=== PATIENT | female | born 1945 | race Caucasian/White ===

== ENCOUNTER → 2018-02-27 10:40 | Outpatient (CLI) | payer MEDICARE, SELFPAY ==
--- NOTE | 2018-02-27 10:49 | MRI_ITS ---
STUDY: MRI LUMBAR SPINE WITHOUT CONTRAST REASON FOR EXAM: Female, 72 years old. lumbar radiculopathy, BACK PAIN. TECHNIQUE: Standardized fat and water weighted pulse sequences were obtained in the sagittal and axial planes. COMPARISON: None FINDINGS: T12-L1: There is moderate disc space narrowing and anterior spondylosis. There is no significant disc herniation, spinal canal or foramina stenosis.. Normal lumbar lordosis. There is levoscoliosis. Normal conus medullaris that terminates at the L1 L1-2: There is moderate disc space narrowing and endplate spondylosis. There is a minimal disc bulge without significant central canal or foraminal stenosis. L2-3: There is severe disc space narrowing and endplate spondylosis. There is minimal retrolisthesis. There is a disc osteophyte complex asymmetric to the right with moderate right foraminal stenosis. There is facet hypertrophy with mild central canal and mild left foraminal stenosis. L3-4: There is severe disc space narrowing and endplate spondylosis. There is a disc osteophyte complex asymmetric to the right with moderate right foraminal stenosis. There is facet arthropathy with mild central canal and mild left foraminal stenosis. L4-5: There is moderate disc space narrowing and endplate spondylosis. There is a moderate disc osteophyte complex asymmetric to the left with moderate left foraminal stenosis. There is facet arthropathy with mild central canal and mild right foraminal stenosis. L5-S1: There is severe disc space narrowing and endplate spondylosis. There is a mild disc osteophyte complex asymmetric to the left with moderate left foraminal stenosis. There is facet adenopathy without significant central canal or right foraminal stenosis. Normal visualized sacral ala. Normal visualized paraspinous soft tissue structures. MRI/Spine Lumbar (Routine) IMPRESSION: Scoliosis and multilevel degenerative changes. L2/L3: Moderate right foraminal stenosis. L3/L4: Moderate right foraminal stenosis. L4/L5: Moderate left foraminal stenosis. L5/S1: Moderate left foraminal stenosis. Electronically Signed: Zaki Lakhani MD at 14:58 EDT Tel , Service support ,
== END ==
PROVIDERS: Family Provider Family Medicine; PCP Family Medicine; Visit Provider Anesthesiology
DX: M54.16 Radiculopathy, lumbar region (principal)
CPT/HCPCS: 72148

== ENCOUNTER → 2018-04-22 10:36 | Outpatient (CLI) | payer MEDICARE, SELFPAY ==
--- NOTE | 2018-04-22 | BRBX_PTH ---
PATIENT: TIMBO POOLE LOC: [facility] U#:[id number] AGE/SX: 79/F ROOM: RE04/22/[address]: Dr. Carrington Loya MD : 1945 BED: DIS: SPEC #: [id number] RECD: 04/22/18 13:25 STATUS: DELBERT OMAR #: [id number] MUNIR: 04/22/18 00:[address]: Carrington Loya DEPT: SURGICAL PATHOLOGY RECD BY: Shai Mckeon ENTERED: 04/22/18 13:28 SP TYPE: BREAST BX OT DR: Dr. Dipesh Ellington MD Tissues: Left breast, NOS Procedures: Surgery Specimen Level IV HEADER OPERATION: Left breast stereotactic needle core biopsy PRE-OP DIAGNOSIS: Left breast nodular density TISSUE SUBMITTED: 9 mm nodular density 8 o?clock middle depth ISCHEMIC TIME: 1 minute FIXATION TIME: 8 hours MICROSCOPIC DIAGNOSIS Left breast, 9 mm nodular density, 8 o?clock middle depth, stereotactic needle core biopsy: Fatty breast tissue with focal fibrocystic changes. A minute fibrous nodule (0.2 cm in greatest dimension). Negative for atypia or malignancy. RAMIN:ramakrishna 04/23/18 COMMENT Correlation with clinical, radiologic findings and appropriate follow up are necessary. MICROSCOPIC DESCRIPTION Slides are reviewed. GROSS DESCRIPTION Received is one container labeled with the patient's name and not further designated. The specimen consists of multiple elongated fragments of franklin-yellow fibroadipose tissue that in aggregate measure 7.5 x 3 x 0.3 cm. The entire specimen is submitted in three cassettes. / RAMIN:ramakrishna 04/22/18 TC:5 CPT: 72103
--- NOTE | 2018-04-22 10:30 | BI_ITS ---
STEREOTACTIC CORE BIOPSY REASON FOR EXAM: Female, 72 years old. Suspicious nodule in the inferior medial aspect of the left breast. PERTINENT HISTORY: Non-contributory. COMPARISON: None. TECHNIQUE: (All elements of maximal sterile barrier technique followed, including US elements as applicable) Upon arrival to the breast imaging department the patient's identification was confirmed and the RIGHT breast was marked according to time-out protocol. Stereotactic core biopsy and clip placement, to include potential risks and complications, was explained in full to the patient. Written and verbal consent were obtained prior to initiation of the procedure. The patient was placed in prone position on the stereotactic biopsy table with the RIGHT breast in cc compression. Manager Behavioral and stereotactic views were then obtained for targeting. The RIGHT breast was prepped and draped in standard sterile fashion and local anesthesia was obtained with 1% buffered lidocaine. A small dermatotomy was then made to introduce the core biopsy needle. Multiple core samples were obtained with a 8 gauge vacuum assisted core biopsy needle. A titanium clip was then deployed into the biopsy cavity. Upon completion of the procedure hemostasis was obtained and sterile dressing was applied. The patient tolerated the entire procedure without immediate complication and was discharged from the breast imaging department in good condition. BI/Stereo Breast Biopsy 1st Lesio IMPRESSION: Stereotactic core biopsy for suspicious nodule in the RIGHT breast without complication. Electronically Signed: Ramsey Herrera MD at 14:55 EDT Tel [phone], Service support ,
== END ==
PROVIDERS: Family Provider Family Medicine; PCP Family Medicine
DX: R92.8 Other abnormal and inconclusive findings on diagnostic imaging of breast (principal); N63.20 Unspecified lump in the left breast, unspecified quadrant
CPT/HCPCS: 19081; 88305; A4648

== ENCOUNTER → 2018-04-29 13:16 | Outpatient (CLI) | payer MEDICARE, SELFPAY ==
[2018-04-29 14:36] LABS: Amphetamine Urine VISTA NEGATIVE (<1000 ng/mL); Barbiturate Urine VISTA NEGATIVE (< 200 ng/mL); Benzodiazepine Urine VISTA NEGATIVE (< 200 ng/mL); Cocaine Urine VISTA NEGATIVE (< 300 ng/mL); Ecstacy Urine VISTA NEGATIVE (< 500 ng/mL); Methadone Urine VISTA NEGATIVE (< 300 ng/mL); PCP Urine VISTA NEGATIVE (< 25 ng/mL); THC Urine VISTA NEGATIVE (< 50 ng/mL); Vista UDS pH Range 8
== END ==
PROVIDERS: Family Provider Family Medicine; PCP Family Medicine; Visit Provider Anesthesiology Pain Medicine
DX: F11.20 Opioid dependence, uncomplicated (principal)
CPT/HCPCS: 80307

== ENCOUNTER → 2019-10-06 12:53 | Outpatient (CLI) | payer MEDICARE, SELFPAY ==
--- NOTE | 2019-10-06 13:00 | RAD_ITS ---
STUDY: SWALLOWING STUDY REASON FOR EXAM: Female, 73 years old. DYSPHAGIA, 870 IMAGES, 12.06 MGY, 81 SEC FLUORO TECHNIQUE: The examination was performed with Speech Pathology in attendance. Under fluoroscopic observation, the patient ingested thin barium, thick barium, barium pudding, and barium coated cracker. FLUOROSCOPY TIME: 1:21 minutes/seconds RADIOLOGIST INVOLVEMENT: Radiologist was present and providing direct supervision. COMPARISON: None. FINDINGS: The following was observed during swallowing of the various mixtures of barium: Thin Barium: There was no evidence of aspiration or laryngeal penetration. Barium Pudding: There was no evidence of aspiration or laryngeal penetration. Barium Coated Cracker: There was no evidence of aspiration or laryngeal penetration. RAD/Swallowing Function w/Video IMPRESSION: Normal tailored barium swallow study. No evidence of increased risk for aspiration. The swallow study findings were discussed with the patient by the speech pathologist at the conclusion of the examination. Please see speech pathology report for more information and recommendations. Electronically Signed: Ramsey Herrera, at 13:55 EST , Service support ,
--- NOTE | 2019-10-06 13:00 | SP.MBSS_ITS ---
PRIMARY / SECONDARY DIAGNOSIS: dysphagia (R13.10) REFERRING PHYSICIAN: Dr. Dipesh Ellington MD CURRENT DIET: regular soft textures, thin liquids DENTITION: natural dentition, multiple missing teeth MENTAL STATUS: sufficient for participation RESPIRATORY STATUS: O2 at 4L/min via nasal cannula. REASON FOR REFERRAL: The Patient is a 73 year old female referred for a modified barium swallow (MBS) study to objectively assess the Patients oropharyngeal swallow function under fluoroscopy secondary to reported occasional post prandial coughing with thin liquids. MEDICAL HISTORY: Parkinson?s disease, dementia, gastroesophageal reflux disease, anemia, hyponatremia, prepyloric channel ulcer, hypertension, status post tonsillectomy. PREVIOUS MODIFIED BARIUM SWALLOW STUDY: None ASSESSMENT PARAMETERS: The Patient participated in a Modified Barium Swallow (MBS) study on 10/06/2019. Dr. Herrera was the radiologist present for this evaluation. This study was recorded in the lateral view and images were sent to PACs for storage. Scoring was completed through each trial using the 8-point Penetration-Aspiration Scale (PAS) and summarized via the Videofluoroscopic Dysphagia Scale (VDS) and the Bolus Residue Scale (BRS), with severity scoring through the Dysphagia Severity Rating Scale (DSRS) and the Swallowing Performance Scale (SPS), and recommended diet textures through the International Dysphagia Diet Standardisation Initiative (IDDSI) RESULTS OF THE EVALUATION: The Patient presents with mild to moderate oropharyngeal dysphagia (DSRS: 3; SPS: 4) OBJECTIVE ASSESSMENT OF SWALLOW FUNCTION (QUANTITATIVE ? PER TRIAL): PENETRATION / ASPIRATION SCALE (ROY): 1 = does not enter airway 2 = enters airway/above vocal folds/ejected 3 = enters airway/above vocal folds/not ejected 4 = enters airway/contacts vocal folds/ejected 5 = enters airway/contacts vocal folds/not ejected 6 = enters airway/below vocal folds/ejected 7 = enters airway/below vocal folds/not ejected despite effort 8 = enters airway/below vocal folds/no effort PENETRATION / ASPIRATION SCALE (SCORE): Thin liquid - 5 mL tsp.: 1 Thin liquids via cup (single sip): 2* Thin liquids via cup (single sip): 1 Thin liquids via cup (single sip): 1 Pudding via spoon: 1 Regular textured cookie: 1 Thin liquids via straw (single sip): 1 Thin liquids via straw (sequential swallows): 1 * denotes limited view due to Patient movement OBJECTIVE ASSESSMENT OF SWALLOW FUNCTION (QUANTITATIVE ? AGGREGATE): VIDEOFLOROSCOPIC DYSPHAGIA SCALE (VDS): LIP CLOSURE: 0 (of 4) Intact BOLUS FORMATION: 0 (of 6) Intact MASTICATION: 4 (of 8) Inadequate APRAXIA: 0 (of 4.5) None TONGUE TO PALATE CONTACT: 0 (of 10) Intact PREMATURE BOLUS LOSS: 0 (of 4.5) None ORAL TRANSIT TIME: 0 (of 3) < 1.5s TRIGGERING OF PHARYNGEAL SWALLOW: 0 (of 4.5) Normal VALLECULAR RESIDUE: 2 (of 6) <10% LARYNGEAL ELEVATION: 0 (of 9) Normal PYRIFORM SINUS RESIDUE: 0 (of 13.5) None COATING OF PHARYNGEAL WALL: 0 (of 9) No PHARYNGEAL TRANSIT TIME: 0 (of 6) <1.0s ASPIRATION: 6 (of 12) Supraglottic penetration BOLUS RESIDUE SCALE (BRS): 2 (of 6) residue in valleculae OBJECTIVE ASSESSMENT OF SWALLOW FUNCTION (SEVERITY GRADING): DYSPHAGIA SEVERITY RATING SCALE (DSRS): 3 (mild-moderate) SWALLOWING PERFORMANCE SCALE (SPS): 4 (mild to moderate) OBJECTIVE ASSESSMENT OF SWALLOW FUNCTION (QUALITATIVE): ORAL PREPARATORY PHASE: prolonged mastication of solid textures; sufficient anterior oral containment during oral manipulation; preserved management of breathing / bolus formation ORAL TRANSITIONAL PHASE: no lingual discoordination (no tremor / undulations) sufficient oral clearance; no presence of premature posterior bolus loss PHARYNGEAL PHASE: intermittent mild pharyngeal phase delay dyssynchrony; appropriate hyolaryngeal excursion and laryngeal vestibule closure / pressure; sufficient / consistent laryngeal vestibule pressure generated to expel penetrated material; no signs of pharyngeal dysmotility; no signs of velopharyngeal impairments ESOPHAGEAL PHASE: no obvious esophageal phase abnormalities observed. RESPONSE TO STRATEGIES: all deficits managed successfully with reduction in bolus rate / volume adjustments, diet texture adjustments, use of straws, and proper positioning POST ASSESSMENT EDUCATION: Results and recommendations were discussed with the Patient and Patients family immediately following MBS completion, with the Patient and Patients family verbalizing understanding and agreement with all recommendations and education provided. I provided brief overview of signs and symptoms of aspiration, with recommendations for the Patient to further discuss symptoms with the Patients primary care provider. DIET TEXTURE RECOMMENDATIONS: Will recommend a regular ? soft textured (IDDSI: 6), thin liquid diet (IDDSI: 0) diet RECOMMENDED COMPENSATORY STRATEGIES: Distant supervision, cut tougher textures into bite sized pieces, reduced bolus volume / rate of ingestion, reduced bolus volume, reduced rate of intake, straws with all liquids, seated upright at 90 degrees during PO intake, remain upright for 30-60 minutes post meal (GERD precaution), medications one at a time with a liquid chaser. IMAGE COUNT: [id number] Milind Valdez M.A., LOKESH-ROUTER SETTER, CBIS MBSImP Certified, LSVT Certified [facility] Speech-Language Pathology Department [email or web address]
== END ==
PROVIDERS: Family Provider Family Medicine; PCP Family Medicine; Referring Provider Family Medicine; Visit Provider Family Medicine
DX: R13.10 Dysphagia, unspecified (principal); I10 Essential (primary) hypertension; E78.5 Hyperlipidemia, unspecified; F03.90 Unspecified dementia, unspecified severity, without behavioral disturbance, psychotic disturbance, mood disturbance, and anxiety; J44.9 Chronic obstructive pulmonary disease, unspecified
CPT/HCPCS: 74230; 92611

== ENCOUNTER 2019-10-30 09:29 | Outpatient (RCR) | payer MEDICARE, SELFPAY ==
[2019-10-30 10:22] VITALS: BP 156/116; PULSE 83; RESP 18; TEMP 35.8; BMI 38.0
--- NOTE | 2019-10-30 16:43 | PCM.WC.HP ---
(1) Decubitus ulcer of left buttock, stage 3 Status: Chronic Current Visit: Yes Code(s): L89.323 - Pressure ulcer of left buttock, stage 3 (2) Parkinson disease Status: Chronic Current Visit: Yes Code(s): G20 - Parkinson's disease (3) Anticoagulant long-term use Status: Chronic Current Visit: Yes Code(s): Z79.01 - intermediate teacher (current) use of anticoagulants (4) Chronic respiratory failure with hypoxia, on home O2 therapy Status: Chronic Current Visit: Yes Code(s): J96.11 - Chronic respiratory failure with hypoxia; Z99.81 - Dependence on supplemental oxygen History of Present Illness Date of Service: 10/30/19 Chief Complaint: Left Buttock Ulcer History of Wound: Ms. Mckeon is a 73-year-old who presents to the wound center due to nonhealing left buttock ulcer. Initially noticed about 3 weeks ago. They are unsure about a precipitating factor and have some theories/ suspicions about this. Patient and daughter however admit that she is largely sedentary due to her chronic comorbidities. They had tried some local wound care and offloading at home without any significant improvement. They deny chills or fever. They also deny purulent drainage but notes increased bloody fluid drainage. Past Medical History Past Medical History: Chronic Problems Decubitus ulcer of left buttock, stage 3 (Chronic) Parkinson disease (Chronic) Anticoagulant long-term use (Chronic) Chronic respiratory failure with hypoxia, on home O2 therapy (Chronic) Allergies/Adverse Reactions: Allergies cortisone [Cortisone] Allergy (Unknown, Verified 10/30/19 11:00) Swelling fentanyl Allergy (Unknown, Verified 10/30/19 11:00) Nausea Home Medications: Ambulatory Orders Medication Instructions Recorded Acetaminophen [Tylenol Arthritis] 650 mg PO 04/27/14 Amlodipine Besylate 1 gm MC 04/27/14 Aspirin [Aspirin, Baby] 81 mg PO DAILY@0800 04/27/14 Carvedilol [Coreg (Beta Johana)] 25 mg PO BID 04/27/14 Clonazepam [Klonopin] 0.5 mg PO Q8H PRN PRN 04/27/14 Docusate Sodium [Colace] 100 mg PO BID 04/27/14 Famotidine [Pepcid] 20 mg PO BID 04/27/14 Glucosamine/MSM/Chondroitin A 1 each PO 04/27/14 [Glucosamine Chondroit MSM Tab] Hydrocodone/Acetaminophen [Vicodin 1 tablet PO Q6H PRN PRN 04/27/14 Es 7.5-300 mg Tablet] Lactulose 10 gm PO BID 04/27/14 Losartan Potassium [Cozaar] 100 mg PO 04/27/14 Pravastatin [Pravachol] 20 mg PO QHS 04/27/14 Sertraline HCl [Zoloft] 50 mg PO DAILY 04/27/14 Vitamin C 500 mg PO DAILY 04/27/14 traMADol [Ultram (G)] 50 mg PO Q6H PRN PRN 04/27/14 Smoking Status: Never smoker Review of Systems Constitutional: Reports: Weakness. Denies: Chills, Fever Eyes: Denies: Pain, Redness HEENT: Denies: Difficulty Swallowing Cardiovascular: Denies: Chest Pain, Chest Pressure Respiratory: Reports: Shortness of breath upon exertion Gastrointestinal: Denies: Hematemesis, Vomiting Skin: Denies: Jaundice - Physical Exam Vital Signs Temp Pulse Resp BP 96.5 F L 83 18 156/116 H 10/30/19 10:22 10/30/19 10:22 10/30/19 10:22 10/30/19 10:22 General: Alert, Oriented x3, Cooperative, No apparent distress HEENT: Atraumatic, Normocephalic Oral: Moist Mucosa Neck: Supple Lungs: Normal air movement Cardiovascular: - - Irregularly irregular rhythm Abdomen: Non Tender Skin: Ulcer/ Wound Wound Measurements and Assessment WC - Nurse 1 - General Ulcer Measurement Start: 10/30/19 09:48 Freq: Status: Active Protocol: Activity Type Activity Date Activity User E-Sign Co-Sign Detail Recorded Client Recorded Date Recorded By Document 10/30/19 10:22 DV [id number] 10/30/19 10:31 DV 10/30/19 10:22 Wound Center Nurse 1 [Ulcer Assessment] #1 Left Gluteal Fold -Combined with other wound No -Current Size (cm) - Length 6.5 -Current Size (cm) - Width 4.0 -Current Size (cm) - Depth 0.7 -Total Square Cm 26.00 -Date of Last Picture (Recall this 10/30/19 field) -Epithelialization None Present -Tunneling No -Undermining/Tunneling No -Circular Undermining No -Classification - Thickness Full Thickness without Exposed Support Structure -Exudate Amt Large -Exudate Type Sanguineous -Wound Margin Indistinct, Non -Visible -Granulation Amt None Present (0 %) -Granulation Quality N/A -Slough/Fibrin Yes -Necrosis Amt Large (67-100%) -Necrotic Tissue Type Adherent Slough -Structure Exposed None/Limited to Skin Breakdown -Texture (Iman-wound Skin Appearance) Assessed, Localized Edema -Moisture (Iman-wound Skin Appearance Assessed, ) Weeping -Color (Iman-wound Skin Appearance) Assessed, Erythema -Temperature (Iman-wound Skin No Abnormality Appearance) (Pt Warm) -Tenderness on Palpation (Iman-wound Yes Skin Appearance) -Foul Odor after Cleansing No -Anesthetic Used 5% Lidocaine Gel WC - Nurse 2 - General Ulcer CM Notes Start: 10/30/19 09:48 Freq: Status: Active Protocol: Activity Type Activity Date Activity User E-Sign Co-Sign Detail Recorded Client Recorded Date Recorded By Document 10/30/19 10:40 MW [id number] 10/30/19 10:55 MW 10/30/19 10:40 Wound Center Nurse 2 [Procedure/Treatment] -Time 10:41 -Correct Patient Yes -Correct Side, Site, Position Yes -Correct Procedure Yes -Procedure Performed Yes -Type of Procedure Debridement -Clinical Debridement Subcutaneous -Post Debridement Size (cm) - Length 6.0 -Post Debridement Size (cm) - Width 3.5 -Post Debridement Size (cm) - Depth 1.9 -Total Square Cm 21.00 -Wound/Ulcer Outcome Not Healed -Ulcer Cleansing Rinsed/ Irrigated with Saline -Foul Odor after Cleansing No -Bioengineered Tissue No -Bleeding Controlled with Pressure -Offloading No -Treatment Response Procedure Tolerated Well [See Physician Procedure note for Specifics] Pain Scale: 0-10 Numeric [Pain] -Is Patient Pain Free? Yes Psych/Mental Status: Normal Affect Debridement Note Post-Debridement Measurements/Treatment - Nurse 2 - General Ulcer CM Notes Start: 10/30/19 09:48 Freq: Status: Active Protocol: Activity Type Activity Date Activity User E-Sign Co-Sign Detail Recorded Client Recorded Date Recorded By Document 10/30/19 10:40 MW [email or web address] 10/30/19 10:55 MW 10/30/19 10:40 Wound Center Nurse 2 #1 Left Gluteal Fold -Time 10:41 -Correct Patient Yes -Correct Side, Site, Position Yes -Correct Procedure Yes -Procedure Performed Yes -Type of Procedure Debridement -Clinical Debridement Subcutaneous -Post Debridement Size (cm) - Length 6.0 -Post Debridement Size (cm) - Width 3.5 -Post Debridement Size (cm) - Depth 1.9 -Total Square Cm 21.00 -Wound/Ulcer Outcome Not Healed -Ulcer Cleansing Rinsed/ Irrigated with Saline -Foul Odor after Cleansing No -Bioengineered Tissue No -Bleeding Controlled with Pressure -Offloading No -Treatment Response Procedure Tolerated Well Pain Scale: 0-10 Numeric Is Patient Pain Free? Yes Wound debrided: Left buttock Wound Grade/Stage: Stage 3 Type of Debridement: Excisional debridement Anesthesia Used: 4% Lidocaine Solution, 5% Lidocaine Gel Depth: Down to and including healthy tissue, in the subcutaneous layer Percentage of wound debrided: 100 Instrument Used: 7mm curette, #15 blade, Forceps Tissue Removed: Slough and devitalized tissue Severity: Fat Layer Exposed Amount of bleeding with debridement: Mild Bleeding Controlled with: Pressure Patient tolerated procedure well Assessment/Plan Active Problems Decubitus ulcer of left buttock, stage 3 (Chronic) Parkinson disease (Chronic) Anticoagulant long-term use (Chronic) Chronic respiratory failure with hypoxia, on home O2 therapy (Chronic) Assessment: None healing left buttock ulcer. Likely due to pressure. Significant necrotic tissue. Several comorbid conditions including Parkinson's, chronic respiratory failure on oxygen, atrial fibrillation on anticoagulation. Plan: Debridement done as documented above. Procedure was largely well-tolerated. As above, significant necrotic tissue and tenderness. Cultures taken. Labs ordered including CBC, CMP, ESR, CRP and prealbumin. Xray ordered to r/o osteomyelitis. Due to depth and significant drainage, I believe she will benefit from a wound VAC, orders placed. Also primarily homebound and so an order for home health was also placed. Stage III decubitus ulcer, largely sedentary, low loss air mattress ordered. For now, Aquacel Ag daily to twice daily depending on drainage. Offloading very strongly recommended. Increase protein intake. Their questions were answered and they were advised to call with any further questions or concerns. Follow-up in a week. This note was generated with [employer] software. It may contain incorrect words, spelling, and punctuation that were not noted in checking the note before signing. Multi Select Codes - Visit Charges Office Visit/Consults: 25742 OV L4 New - Integumentary Integumentary CPT Codes: 39131 Fannie subq tissue 20 sq cm/<, Other Procedure See Report - Additional Sq Cm debrided.
== END 2019-11-01 23:59 ==
LOC: WC 09:29
PROVIDERS: PCP Family Medicine; Referring Provider Internal Medicine; Visit Provider Internal Medicine
DX: L89.323 Pressure ulcer of left buttock, stage 3 (principal); G20 Parkinson's disease; J96.11 Chronic respiratory failure with hypoxia; I48.91 Unspecified atrial fibrillation; Z79.01 Long term (current) use of anticoagulants; Z79.82 Long term (current) use of aspirin; Z99.81 Dependence on supplemental oxygen
CPT/HCPCS: 11042; 87070; 87075; 87077; 87186; 87205; 99213; G0463

== ENCOUNTER → 2019-11-14 09:32 | Outpatient (CLI) | payer MEDICARE, SELFPAY ==
[2019-11-06 09:49] VITALS: BMI 38.0
--- NOTE | 2019-11-14 09:44 | RAD_ITS ---
STUDY: X-RAY - PELVIS AND LEFT HIP REASON FOR EXAM: Female, 73 years old. LEFT SUBCUTANEOUS ULCER X 3-4 WEEKS TECHNIQUE: 3 views of the pelvis and hip. COMPARISON: 09/24/2013 FINDINGS: There is a non-specific bowel gas pattern. Normal visualized soft tissue structures. There are degenerative changes of the lumbosacral spine. Tubing projects over the left hip compatible with wound VAC. Normal bilateral iliac wings, sacroiliac joints and visualized sacrum. Normal bilateral superior and inferior pubic rami. Normal pubic symphysis. Normal bilateral ischial tuberosities. Normal visualized femoral head. Normal acetabulum. Normal hip joint. RAD/HIP, UNI W/ Pelvis 2-3 Views IMPRESSION: No destructive bony process. Wound VAC. Electronically Signed: Balbir Cuellar MD ([place]) at 16:54 EDT , Service support ,
[2019-11-14 10:36] LABS: Absolute Lymphocyte Count 1.27 X10^3/uL (0.83-4.51); Absolute Neutrophil Count 11.8 X10^3/uL (2.0-7.7); Basophil# 0.05 X10^3/uL; Basophil% 0.3 % (0-1); Eosinophil# 0.06 X10^3/uL; Eosinophils% 0.4 % (0-5); Hematocrit 41.1 % (37-47); Hemoglobin 12.8 g/dL (12.0-15.0); Lymphocyte # 1.27 X10^3/ul (4.0); Lymphocyte % 8.8 % (19-41); Mean Corp Hgb Conc 31.1 g/dL (32-36); Mean Corpuscular Hgb 29.8 pg (27.0-32.0); Mean Corpuscular Volume 95.8 fL (81-99); Mean Platelet Vol. 9.1 fl (6.2-12.0); Monocyte# 1.14 X10^3/uL; Monocyte% 7.9 % (0-10); NRBC Flagged by Analyzer 0 % (0-5); Neutrophil # 11.84 X10^3/uL (2.7-7.7); Neutrophil % 81.8 % (47-70); Platelet Count 313 K/mm3 (150-450); RBC Distribution Width CV 15.2 % (11.6-14.6); RBC Distribution Width SD 53.9 fl (35.1-43.9); Red Blood Count 4.29 M/mm3 (4.2-5.4); White Blood Count 14.5 K/mm3 (4.4-11.0)
[2019-11-14 10:43] LABS: Erythrocyte Sedimentation Rate 29 mm/hr (0-30)
[2019-11-14 11:12] LABS: ALB/GLOB Ratio 0.9 RATIO (0.9-2.4); AST(SGOT) 13 U/L (15-37); Alanine Aminotransfer ALT/SGPT 11 U/L (13-56); Albumin, Serum 3.5 g/dL (3.2-5.0); Alkaline Phosphatase 80 U/L (45-117); Anion Gap 8 (5-15); BUN 26 mg/dL (7-18); BUN/Creat Ratio 20.3 RATIO (10-20); Calcium,Total 9.1 mg/dL (8.5-10.1); Chloride 99 mmol/L (98-107); Creatinine, Serum 1.28 mg/dL (0.55-1.02); EST Glomerular Filtration Rate 43 mL/min (>60); Est Glom Filt Rate - Afr Amer 53 mL/min (>60); Glucose 123 mg/dL (74-106); Potassium 3.3 mmol/L (3.5-5.1); Prealbumin 21.9 mg/dL (20.0-40.0); Protein, Total 7.5 g/dL (6.4-8.2); Sodium Level 137 mmol/L (136-145)
[2019-11-14 11:18] LABS: Hemoglobin A1c 6.1 % (4.2-6.3)
== END ==
PROVIDERS: PCP Family Medicine; Referring Provider Internal Medicine; Visit Provider Internal Medicine
DX: L89.323 Pressure ulcer of left buttock, stage 3 (principal)
CPT/HCPCS: 36415; 73502; 80053; 83036; 84134; 85025; 85652; 86140

== ENCOUNTER 2019-11-27 10:00 | Outpatient (RCR) | payer MEDICARE, SELFPAY ==
[2019-11-02 01:12] VITALS: BP 156/116; PULSE 83; RESP 18; TEMP 35.8
[2019-11-06 09:49] VITALS: BP 151/95; PULSE 84; RESP 18; TEMP 35.9; BMI 38.0
--- NOTE | 2019-11-06 11:15 | PCM.WC.PN ---
(1) Decubitus ulcer of left buttock, stage 3 Status: Chronic Current Visit: Yes Code(s): L89.323 - Pressure ulcer of left buttock, stage 3 (2) Anticoagulant long-term use Status: Chronic Current Visit: Yes Code(s): Z79.01 - [facility] (current) use of anticoagulants (3) Chronic respiratory failure with hypoxia, on home O2 therapy Status: Chronic Current Visit: Yes Code(s): J96.11 - Chronic respiratory failure with hypoxia; Z99.81 - Dependence on supplemental oxygen (4) Parkinson disease Status: Chronic Current Visit: Yes Code(s): G20 - Parkinson's disease Type of Wound Date of Service: 11/06/19 Chief Complaint: Left Buttock Ulcer History of Wound: Ms. Mckeon is a 73-year-old who presents to the wound center due to nonhealing left buttock ulcer. Initially noticed about 3 weeks ago. They are unsure about a precipitating factor and have some theories/ suspicions about this. Patient and daughter however admit that she is largely sedentary due to her chronic comorbidities. They had tried some local wound care and offloading at home without any significant improvement. They deny chills or fever. They also deny purulent drainage but notes increased bloody fluid drainage. Progress of Wound: Improving. No new concerns this time. - Physical Exam Vital Signs Temp Pulse Resp BP 96.6 F L 84 18 151/95 H 11/06/19 09:49 11/06/19 09:49 11/06/19 09:49 11/06/19 09:49 General: Alert, Oriented x3, Cooperative, No apparent distress HEENT: Atraumatic, Normocephalic Oral: Moist Mucosa Extremities: No cyanosis Skin: Ulcer/ Wound Wound Measurements and Assessment WC - Nurse 1 - General Ulcer Measurement Start: 11/06/19 09:49 Freq: Status: Active Protocol: Activity Type Activity Date Activity User E-Sign Co-Sign Detail Recorded Client Recorded Date Recorded By Document 11/06/19 09:49 [facility] [id number] 11/06/19 10:03 [facility] 11/06/19 09:49 Wound Center Nurse 1 [Ulcer Assessment] #1 Left Gluteal Fold -Combined with other wound No -Current Size (cm) - Length 4.8 -Current Size (cm) - Width 3.5 -Current Size (cm) - Depth 0.2 -Total Square Cm 16.80 -Photo Taken No -Epithelialization None Present -Tunneling No -Undermining/Tunneling No -Circular Undermining No -Exudate Amt Small -Exudate Type Serosanguineous -Wound Margin Distinct, Outline Attached -Granulation Amt Large (67-100%) -Granulation Quality Red -Slough/Fibrin Yes -Necrosis Amt Small (1-33%) -Necrotic Tissue Type Adherent Slough -Texture (Iman-wound Skin Appearance) Assessed, Scarring -Moisture (Iman-wound Skin Appearance Assessed ) -Color (Iman-wound Skin Appearance) Assessed, Erythema -Temperature (Iman-wound Skin No Abnormality Appearance) (Pt Warm) -Tenderness on Palpation (Iman-wound Yes Skin Appearance) -Ulcer Cleansing soapy water -Foul Odor after Cleansing No -Anesthetic Used 4% Lidocaine Solution WC - Nurse 2 - General Ulcer CM Notes Start: 11/06/19 09:49 Freq: Status: Active Protocol: Activity Type Activity Date Activity User E-Sign Co-Sign Detail Recorded Client Recorded Date Recorded By Document 11/06/19 10:27 MW [id number] 11/06/19 10:32 MW 11/06/19 10:27 Wound Center Nurse 2 [Procedure/Treatment] -Time 10:27 -Correct Patient Yes -Correct Side, Site, Position Yes -Correct Procedure Yes -Procedure Performed Yes -Type of Procedure Debridement -Clinical Debridement Subcutaneous -Post Debridement Size (cm) - Length 4.6 -Post Debridement Size (cm) - Width 3.0 -Post Debridement Size (cm) - Depth 0.6 -Total Square Cm 13.80 -Wound/Ulcer Outcome Not Healed -Ulcer Cleansing Rinsed/ Irrigated with Saline -Foul Odor after Cleansing No -Bioengineered Tissue No -Bleeding Controlled with Pressure -Offloading No -Treatment Response Procedure Tolerated Well [See Physician Procedure note for Specifics] Pain Scale: 0-10 Numeric [Pain] -Is Patient Pain Free? Yes Neurological: Cranial nerves II-XII grossly intact Psych/Mental Status: Normal Affect Debridement Note Post-Debridement Measurements/Treatment WC - Nurse 2 - General Ulcer CM Notes Start: 11/06/19 09:49 Freq: Status: Active Protocol: Activity Type Activity Date Activity User E-Sign Co-Sign Detail Recorded Client Recorded Date Recorded By Document 11/06/19 10:27 MW [id number] 11/06/19 10:32 MW 11/06/19 10:27 Wound Center Nurse 2 #1 Left Gluteal Fold -Time 10:27 -Correct Patient Yes -Correct Side, Site, Position Yes -Correct Procedure Yes -Procedure Performed Yes -Type of Procedure Debridement -Clinical Debridement Subcutaneous -Post Debridement Size (cm) - Length 4.6 -Post Debridement Size (cm) - Width 3.0 -Post Debridement Size (cm) - Depth 0.6 -Total Square Cm 13.80 -Wound/Ulcer Outcome Not Healed -Ulcer Cleansing Rinsed/ Irrigated with Saline -Foul Odor after Cleansing No -Bioengineered Tissue No -Bleeding Controlled with Pressure -Offloading No -Treatment Response Procedure Tolerated Well Pain Scale: 0-10 Numeric Is Patient Pain Free? Yes Wound debrided: Left Buttock Wound Grade/Stage: Stage III Type of Debridement: Excisional debridement Anesthesia Used: 4% Lidocaine Solution Percentage of wound debrided: 100 Instrument Used: 7mm curette Tissue Removed: Slough and devitalized tissue Severity: Fat Layer Exposed Amount of bleeding with debridement: Mild Bleeding Controlled with: Pressure Patient tolerated procedure well Assessment/Plan Active Problems Decubitus ulcer of left buttock, stage 3 (Chronic) Parkinson disease (Chronic) Anticoagulant long-term use (Chronic) Chronic respiratory failure with hypoxia, on home O2 therapy (Chronic) Assessment: None healing left buttock ulcer. Likely due to pressure. Significant necrotic tissue. Several comorbid conditions including Parkinson's, chronic respiratory failure on oxygen, atrial fibrillation on anticoagulation. Plan: Debridement done as documented above. Procedure was largely well-tolerated. Improvement noted. Started on Doxycycline per culture and sensitivity. Also now approved for wound Vac. Start at 125mmHG and change every other day. Undermining noted. Offloading very strongly recommended. Hospital bed has been ordered. Yet to get blood work and imaging done. Continue Increased protein intake. Their questions were answered and they were advised to call with any further questions or concerns. Follow-up in a week. This note was generated with [employer] software. It may contain incorrect words, spelling, and punctuation that were not noted in checking the note before signing. [id number]: [id number] Fannie subq tissue 20 sq cm/<
[2019-11-20 10:35] VITALS: BP 154/92; PULSE 58; RESP 20; TEMP 35.9; BMI 38.0
--- NOTE | 2019-11-20 11:45 | PCM.WC.PN ---
(1) Decubitus ulcer of left buttock, stage 3 Status: Chronic Current Visit: Yes Code(s): L89.323 - Pressure ulcer of left buttock, stage 3 (2) Anticoagulant long-term use Status: Chronic Current Visit: Yes Code(s): Z79.01 - [facility]ial (current) use of anticoagulants (3) Chronic respiratory failure with hypoxia, on home O2 therapy Status: Chronic Current Visit: Yes Code(s): J96.11 - Chronic respiratory failure with hypoxia; Z99.81 - Dependence on supplemental oxygen (4) Parkinson disease Status: Chronic Current Visit: Yes Code(s): G20 - Parkinson's disease Type of Wound Date of Service: 11/20/19 Chief Complaint: Left Buttock Ulcer History of Wound: Ms. Mckeon is a 73-year-old who presents to the wound center due to nonhealing left buttock ulcer. Initially noticed about 3 weeks ago. They are unsure about a precipitating factor and have some theories/ suspicions about this. Patient and daughter however admit that she is largely sedentary due to her chronic comorbidities. They had tried some local wound care and offloading at home without any significant improvement. They deny chills or fever. They also deny purulent drainage but notes increased bloody fluid drainage. Progress of Wound: Improving. No new concerns this time. - Physical Exam Vital Signs Temp Pulse Resp BP 96.7 F L 58 L 20 H 154/92 H 11/20/19 10:35 11/20/19 10:35 11/20/19 10:35 11/20/19 10:35 General: Alert, Cooperative, No apparent distress HEENT: Atraumatic, Normocephalic Oral: Moist Mucosa Neck: Supple Extremities: No cyanosis Skin: Ulcer/ Wound Wound Measurements and Assessment WC - Nurse 1 - General Ulcer Measurement Start: 11/06/19 09:49 Freq: Status: Active Protocol: Activity Type Activity Date Activity User E-Sign Co-Sign Detail Recorded Client Recorded Date Recorded By Document 11/20/19 10:35 [facility] [id number] 11/20/19 10:48 BM 11/20/19 10:35 Wound Center Nurse 1 [Ulcer Assessment] #1 Left Gluteal Fold -Combined with other wound No -Current Size (cm) - Length 4.6 -Current Size (cm) - Width 1.8 -Current Size (cm) - Depth 0.1 -Total Square Cm 8.28 -Epithelialization Large 67-100% -Tunneling No -Undermining/Tunneling No -Circular Undermining No -Exudate Amt Small -Exudate Type Sanguineous -Wound Margin Distinct, Outline Attached -Granulation Amt Large (67-100%) -Granulation Quality Red -Slough/Fibrin No -Necrosis Amt None Present (0 %) -Texture (Iman-wound Skin Appearance) Assessed, Scarring -Moisture (Iman-wound Skin Appearance Assessed ) -Color (Iman-wound Skin Appearance) Assessed -Temperature (Iman-wound Skin No Abnormality Appearance) (Pt Warm) -Tenderness on Palpation (Iman-wound No Skin Appearance) -Ulcer Cleansing soapy water -Foul Odor after Cleansing No -Anesthetic Used 4% Lidocaine Solution WC - Nurse 2 - General Ulcer CM Notes Start: 11/06/19 09:49 Freq: Status: Active Protocol: Activity Type Activity Date Activity User E-Sign Co-Sign Detail Recorded Client Recorded Date Recorded By Document 11/20/19 10:57 MW [id number] 11/20/19 10:58 MW 11/20/19 10:57 Wound Center Nurse 2 [Procedure/Treatment] -Time 10:57 -Correct Patient Yes -Correct Side, Site, Position Yes -Correct Procedure Yes -Procedure Performed Yes -Type of Procedure Debridement -Clinical Debridement Subcutaneous -Post Debridement Size (cm) - Length 4.5 -Post Debridement Size (cm) - Width 2.0 -Post Debridement Size (cm) - Depth 0.1 -Total Square Cm 9.00 -Wound/Ulcer Outcome Not Healed -Ulcer Cleansing Rinsed/ Irrigated with Saline -Foul Odor after Cleansing No -Bioengineered Tissue No -Bleeding Controlled with Pressure -Offloading No -Treatment Response Procedure Tolerated Well [See Physician Procedure note for Specifics] Pain Scale: 0-10 Numeric [Pain] -Is Patient Pain Free? Yes Musculoskeletal: No Muscle Wasting Neurological: Cranial nerves II-XII grossly intact Psych/Mental Status: Normal Affect Debridement Note Post-Debridement Measurements/Treatment WC - Nurse 2 - General Ulcer CM Notes Start: 11/06/19 09:49 Freq: Status: Active Protocol: Activity Type Activity Date Activity User E-Sign Co-Sign Detail Recorded Client Recorded Date Recorded By Document 11/06/19 10:27 MW [id number] 11/06/19 10:32 MW Document 11/20/19 10:57 MW [id number] 11/20/19 10:58 MW 11/06/19 11/20/19 10:27 10:57 Wound Center Nurse 2 #1 Left Gluteal Fold -Time 10:27 10:57 -Correct Patient Yes Yes -Correct Side, Site, Position Yes Yes -Correct Procedure Yes Yes -Procedure Performed Yes Yes -Type of Procedure Debridement Debridement -Clinical Debridement Subcutaneous Subcutaneous -Post Debridement Size (cm) - Length 4.6 4.5 -Post Debridement Size (cm) - Width 3.0 2.0 -Post Debridement Size (cm) - Depth 0.6 0.1 -Total Square Cm 13.80 9.00 -Wound/Ulcer Outcome Not Healed Not Healed -Ulcer Cleansing Rinsed/ Rinsed/ Irrigated with Irrigated with Saline Saline -Foul Odor after Cleansing No No -Bioengineered Tissue No No -Bleeding Controlled with Pressure Pressure -Offloading No No -Treatment Response Procedure Procedure Tolerated Well Tolerated Well Pain Scale: 0-10 Numeric Is Patient Pain Free? Yes Yes Wound debrided: Left Buttock Wound Grade/Stage: Stage III Type of Debridement: Excisional debridement Anesthesia Used: 4% Lidocaine Solution Depth: Down to and including healthy tissue, in the subcutaneous layer Percentage of wound debrided: 100 Instrument Used: 5mm curette Tissue Removed: Slough and devitalized tissue Severity: Fat Layer Exposed Amount of bleeding with debridement: Mild Bleeding Controlled with: Pressure Patient tolerated procedure well Assessment/Plan Active Problems Decubitus ulcer of left buttock, stage 3 (Chronic) Parkinson disease (Chronic) Anticoagulant long-term use (Chronic) Chronic respiratory failure with hypoxia, on home O2 therapy (Chronic) Assessment: None healing left buttock ulcer. Likely due to pressure. Significant necrotic tissue. Several comorbid conditions including Parkinson's, chronic respiratory failure on oxygen, atrial fibrillation on anticoagulation. Plan: Debridement done as documented above. Procedure was largely well-tolerated. Continues to show good improvement. No significant undermining. Hold VAC. Switch to Aquacel extra daily to twice daily depending on drainage. Offloading very strongly recommended. Hospital bed has been ordered. She was advised to call with any further questions or concerns. Follow-up in a week. This note was generated with [employer] software. It may contain incorrect words, spelling, and punctuation that were not noted in checking the note before signing. [id number]: [id number] Fannie subq tissue 20 sq cm/<
[2019-11-27 10:06] VITALS: BP 151/87; PULSE 72; RESP 22; TEMP 36.2; BMI 38.0
--- NOTE | 2019-11-27 11:14 | PCM.WC.PN ---
(1) Decubitus ulcer of left buttock, stage 3 Status: Chronic Current Visit: Yes Code(s): L89.323 - Pressure ulcer of left buttock, stage 3 (2) Anticoagulant long-term use Status: Chronic Current Visit: Yes Code(s): Z79.01 - [facility] (current) use of anticoagulants (3) Chronic respiratory failure with hypoxia, on home O2 therapy Status: Chronic Current Visit: Yes Code(s): J96.11 - Chronic respiratory failure with hypoxia; Z99.81 - Dependence on supplemental oxygen (4) Parkinson disease Status: Chronic Current Visit: Yes Code(s): G20 - Parkinson's disease Type of Wound Date of Service: 11/27/19 Chief Complaint: Left Buttock Ulcer History of Wound: Ms. Mckeon is a 73-year-old who presents to the wound center due to nonhealing left buttock ulcer. Initially noticed about 3 weeks ago. They are unsure about a precipitating factor and have some theories/ suspicions about this. Patient and daughter however admit that she is largely sedentary due to her chronic comorbidities. They had tried some local wound care and offloading at home without any significant improvement. They deny chills or fever. They also deny purulent drainage but notes increased bloody fluid drainage. Progress of Wound: Improving. No new concerns this time. - Physical Exam Vital Signs Temp Pulse Resp BP 97.1 F L 72 22 H 151/87 H 11/27/19 10:06 11/27/19 10:06 11/27/19 10:06 11/27/19 10:06 General: Alert, Oriented x3, Cooperative, No apparent distress HEENT: Atraumatic, Normocephalic Oral: Moist Mucosa Neck: Supple Abdomen: Non Tender, Obese Extremities: No cyanosis Skin: Ulcer/ Wound Wound Measurements and Assessment WC - Nurse 1 - General Ulcer Measurement Start: 11/06/19 09:49 Freq: Status: Active Protocol: Activity Type Activity Date Activity User E-Sign Co-Sign Detail Recorded Client Recorded Date Recorded By Document 11/27/19 10:06 CHITO [id number] 11/27/19 10:12 CP 11/27/19 10:06 Wound Center Nurse 1 [Ulcer Assessment] #1 Left Gluteal Fold -Current Size (cm) - Length 3.9 -Current Size (cm) - Width 1.5 -Current Size (cm) - Depth 0.1 -Total Square Cm 5.85 -Photo Taken No -Epithelialization None Present -Undermining/Tunneling No -Wound Margin Thickened -Granulation Amt Large (67-100%) -Granulation Quality Red -Slough/Fibrin No -Structure Exposed N/A -Texture (Iman-wound Skin Appearance) No Abnormality -Moisture (Iman-wound Skin Appearance No Abnormality ) -Color (Mian-wound Skin Appearance) No Abnormality -Temperature (Iman-wound Skin No Abnormality Appearance) (Pt Warm) -Tenderness on Palpation (Iman-wound Yes Skin Appearance) -Ulcer Cleansing Rinsed/ Irrigated with Saline -Foul Odor after Cleansing No -Anesthetic Used 4% Lidocaine Solution WC - Nurse 2 - General Ulcer CM Notes Start: 11/06/19 09:49 Freq: Status: Active Protocol: Activity Type Activity Date Activity User E-Sign Co-Sign Detail Recorded Client Recorded Date Recorded By Document 11/27/19 10:28 MW [id number] 11/27/19 10:29 MW 11/27/19 10:28 Wound Center Nurse 2 [Procedure/Treatment] -Time 10:28 -Correct Patient Yes -Correct Side, Site, Position Yes -Correct Procedure Yes -Procedure Performed Yes -Type of Procedure Debridement -Clinical Debridement Subcutaneous -Post Debridement Size (cm) - Length 3.5 -Post Debridement Size (cm) - Width 1.6 -Post Debridement Size (cm) - Depth 0.1 -Total Square Cm 5.60 -Wound/Ulcer Outcome Not Healed -Ulcer Cleansing Rinsed/ Irrigated with Saline -Foul Odor after Cleansing No -Bioengineered Tissue No -Bleeding Controlled with Pressure -Offloading No -Treatment Response Procedure Tolerated Well [See Physician Procedure note for Specifics] Pain Scale: 0-10 Numeric [Pain] -Is Patient Pain Free? Yes Musculoskeletal: No Muscle Wasting Neurological: Cranial nerves II-XII grossly intact Psych/Mental Status: Normal Affect Debridement Note Post-Debridement Measurements/Treatment - Nurse 2 - General Ulcer CM Notes Start: 11/06/19 09:49 Freq: Status: Active Protocol: Activity Type Activity Date Activity User E-Sign Co-Sign Detail Recorded Client Recorded Date Recorded By Document 11/06/19 10:27 MW [id number] 11/06/19 10:32 MW Document 11/20/19 10:57 MW [id number] 11/20/19 10:58 MW Document 11/27/19 10:28 MW [id number] 11/27/19 10:29 MW 11/06/19 11/20/19 11/27/19 10:27 10:57 10:28 Wound Center Nurse 2 #1 Left Gluteal Fold -Time 10:27 10:57 10:28 -Correct Patient Yes Yes Yes -Correct Side, Site, Position Yes Yes Yes -Correct Procedure Yes Yes Yes -Procedure Performed Yes Yes Yes -Type of Procedure Debridement Debridement Debridement -Clinical Debridement Subcutaneous Subcutaneous Subcutaneous -Post Debridement Size (cm) - Length 4.6 4.5 3.5 -Post Debridement Size (cm) - Width 3.0 2.0 1.6 -Post Debridement Size (cm) - Depth 0.6 0.1 0.1 -Total Square Cm 13.80 9.00 5.60 -Wound/Ulcer Outcome Not Healed Not Healed Not Healed -Ulcer Cleansing Rinsed/ Rinsed/ Rinsed/ Irrigated with Irrigated with Irrigated with Saline Saline Saline -Foul Odor after Cleansing No No No -Bioengineered Tissue No No No -Bleeding Controlled with Pressure Pressure Pressure -Offloading No No No -Treatment Response Procedure Procedure Procedure Tolerated Well Tolerated Well Tolerated Well Pain Scale: 0-10 Numeric Is Patient Pain Free? Yes Yes Yes Wound debrided: Left Buttock Wound Grade/Stage: Stage III Type of Debridement: Excisional debridement Anesthesia Used: 4% Lidocaine Solution Depth: Down to and including healthy tissue, in the subcutaneous layer Percentage of wound debrided: 100 Instrument Used: 5mm curette Tissue Removed: Slough and devtalized tissue Severity: Fat Layer Exposed Amount of bleeding with debridement: Mild Bleeding Controlled with: Pressure Patient tolerated procedure well Assessment/Plan Active Problems Decubitus ulcer of left buttock, stage 3 (Chronic) Parkinson disease (Chronic) Anticoagulant long-term use (Chronic) Chronic respiratory failure with hypoxia, on home O2 therapy (Chronic) Assessment: None healing left buttock ulcer. Likely due to pressure. Significant necrotic tissue. Several comorbid conditions including Parkinson's, chronic respiratory failure on oxygen, atrial fibrillation on anticoagulation. Plan: Debridement done as documented above. Procedure was largely well-tolerated. Continues to show good improvement. DC Vac. Continue Aquacel extra daily to twice daily depending on drainage. Offloading very strongly recommended. Hospital bed has been ordered. She was advised to call with any further questions or concerns. Follow-up in a week. This note was generated with [employer] software. It may contain incorrect words, spelling, and punctuation that were not noted in checking the note before signing. [id number]: [id number] Fannie subq tissue 20 sq cm/<
== END 2019-12-02 23:59 ==
LOC: WC 10:00
PROVIDERS: PCP Family Medicine; Referring Provider Internal Medicine; Visit Provider Internal Medicine
DX: L89.323 Pressure ulcer of left buttock, stage 3 (principal); J96.11 Chronic respiratory failure with hypoxia; Z99.81 Dependence on supplemental oxygen; G20 Parkinson's disease
CPT/HCPCS: 11042; 97605

== ENCOUNTER 2020-01-01 08:10 | Outpatient (RCR) | payer MEDICARE, SELFPAY ==
[2019-12-03 00:53] VITALS: BP 151/87; PULSE 72; RESP 22; TEMP 36.2
[2020-01-01 10:05] VITALS: BP 156/100; PULSE 74; RESP 20; TEMP 36.2; BMI 38.0
--- NOTE | 2020-01-01 10:25 | PCM.WC.PN ---
(1) Decubitus ulcer of left buttock, stage 3 Status: Chronic Current Visit: Yes Code(s): L89.323 - Pressure ulcer of left buttock, stage 3 (2) Anticoagulant long-term use Status: Chronic Current Visit: Yes Code(s): Z79.01 - long-term (current) use of anticoagulants (3) Chronic respiratory failure with hypoxia, on home O2 therapy Status: Chronic Current Visit: Yes Code(s): J96.11 - Chronic respiratory failure with hypoxia; Z99.81 - Dependence on supplemental oxygen (4) Parkinson disease Status: Chronic Current Visit: Yes Code(s): G20 - Parkinson's disease Type of Wound Date of Service: 01/01/20 Chief Complaint: Left Buttock Ulcer History of Wound: Ms. Mckeon is a 73-year-old who presents to the wound center due to nonhealing left buttock ulcer. Initially noticed about 3 weeks ago. They are unsure about a precipitating factor and have some theories/ suspicions about this. Patient and daughter however admit that she is largely sedentary due to her chronic comorbidities. They had tried some local wound care and offloading at home without any significant improvement. They deny chills or fever. They also deny purulent drainage but notes increased bloody fluid drainage. Progress of Wound: Improving. No new concerns this time. - Physical Exam Vital Signs Temp Pulse Resp BP 97.1 F L 74 20 H 156/100 H 01/01/20 10:05 01/01/20 10:05 01/01/20 10:05 01/01/20 10:05 General: Alert, Oriented x3, Cooperative, No apparent distress HEENT: Atraumatic, Normocephalic Oral: Moist Mucosa Neck: Supple Abdomen: Non Tender, Obese Wound Measurements and Assessment WC - Nurse 1 - General Ulcer Measurement Start: 01/01/20 10:05 Freq: Status: Active Protocol: Activity Type Activity Date Activity User E-Sign Co-Sign Detail Recorded Client Recorded Date Recorded By Document 01/01/20 10:05 BRANDY [id number] 01/01/20 10:13 PL 01/01/20 10:05 Wound Center Nurse 1 [Ulcer Assessment] #1 Left Gluteal Fold -Combined with other wound No -Current Size (cm) - Length 0.8 -Current Size (cm) - Width 0.8 -Current Size (cm) - Depth 0.1 -Total Square Cm 0.64 -Date of Last Picture (Recall this 01/01/20 field) -Photo Taken Yes -Epithelialization None Present -Tunneling No -Undermining/Tunneling No -Exudate Amt Small -Exudate Type Serosanguineous -Granulation Amt Large (67-100%) -Granulation Quality [place],Red -Slough/Fibrin No -Necrosis Amt None Present (0 %) -Ulcer Cleansing Rinsed/ Irrigated with Saline -Anesthetic Used 4% Lidocaine Solution - Nurse 2 - General Ulcer CM Notes Start: 01/01/20 10:05 Freq: Status: Active Protocol: Activity Type Activity Date Activity User E-Sign Co-Sign Detail Recorded Client Recorded Date Recorded By Document 01/01/20 10:21 MW [id number] 01/01/20 10:23 MW 01/01/20 10:21 Wound Center Nurse 2 [Procedure/Treatment] -Time 10:23 -Correct Patient Yes -Correct Side, Site, Position Yes -Correct Procedure Yes -Procedure Performed Yes -Type of Procedure Debridement -Clinical Debridement Subcutaneous -Post Debridement Size (cm) - Length 0.7 -Post Debridement Size (cm) - Width 1.0 -Post Debridement Size (cm) - Depth 0.1 -Total Square Cm 0.70 -Wound/Ulcer Outcome Not Healed -Ulcer Cleansing Rinsed/ Irrigated with Saline -Foul Odor after Cleansing No -Bioengineered Tissue No -Bleeding Controlled with Pressure -Offloading No -Treatment Response Procedure Tolerated Well [See Physician Procedure note for Specifics] Pain Scale: 0-10 Numeric [Pain] -Is Patient Pain Free? Yes Musculoskeletal: No Muscle Wasting Neurological: Cranial nerves II-XII grossly intact Psych/Mental Status: Normal Affect Debridement Note Post-Debridement Measurements/Treatment - Nurse 2 - General Ulcer CM Notes Start: 01/01/20 10:05 Freq: Status: Active Protocol: Activity Type Activity Date Activity User E-Sign Co-Sign Detail Recorded Client Recorded Date Recorded By Document 01/01/20 10:21 MW [id number] 01/01/20 10:23 MW 01/01/20 10:21 Wound Center Nurse 2 #1 Left Gluteal Fold -Time 10:23 -Correct Patient Yes -Correct Side, Site, Position Yes -Correct Procedure Yes -Procedure Performed Yes -Type of Procedure Debridement -Clinical Debridement Subcutaneous -Post Debridement Size (cm) - Length 0.7 -Post Debridement Size (cm) - Width 1.0 -Post Debridement Size (cm) - Depth 0.1 -Total Square Cm 0.70 -Wound/Ulcer Outcome Not Healed -Ulcer Cleansing Rinsed/ Irrigated with Saline -Foul Odor after Cleansing No -Bioengineered Tissue No -Bleeding Controlled with Pressure -Offloading No -Treatment Response Procedure Tolerated Well Pain Scale: 0-10 Numeric Is Patient Pain Free? Yes Wound debrided: Left Buttock Wound Grade/Stage: Stage III Type of Debridement: Excisional debridement Anesthesia Used: 4% Lidocaine Solution Depth: Down to and including healthy tissue, in the subcutaneous layer Percentage of wound debrided: 100 Instrument Used: 3mm curette Tissue Removed: Slough and devitalized tissue Severity: Fat Layer Exposed Amount of bleeding with debridement: Mild Bleeding Controlled with: Pressure Patient tolerated procedure well Assessment/Plan Active Problems Decubitus ulcer of left buttock, stage 3 (Chronic) Parkinson disease (Chronic) Anticoagulant long-term use (Chronic) Chronic respiratory failure with hypoxia, on home O2 therapy (Chronic) Assessment: None healing left buttock ulcer. Likely due to pressure. Significant necrotic tissue. Several comorbid conditions including Parkinson's, chronic respiratory failure on oxygen, atrial fibrillation on anticoagulation. Plan: Debridement done as documented above. Procedure was well-tolerated. Hypergranulation noted. Switch to Promogran daily with Adaptic over top. Continue increased protein intake. Offloading also recommended. Now has a hospital bed. She was advised to call with any further questions or concerns. Follow-up in 2 weeks. This note was generated with [employer] dictation software. It may contain incorrect words, spelling, and punctuation that were not noted in checking the note before signing. [id number]: [id number] Fannie subq tissue 20 sq cm/<
== END 2020-01-01 23:59 ==
LOC: WC 08:10
PROVIDERS: PCP Family Medicine; Referring Provider Internal Medicine; Visit Provider Internal Medicine
DX: L89.323 Pressure ulcer of left buttock, stage 3 (principal); J96.11 Chronic respiratory failure with hypoxia; G20 Parkinson's disease; Z79.01 Long term (current) use of anticoagulants; Z99.81 Dependence on supplemental oxygen; I48.91 Unspecified atrial fibrillation
CPT/HCPCS: 11042